=== PATIENT | female | born 1950 | race Caucasian/White ===

== ENCOUNTER → 2018-10-05 | Outpatient (CLI) | payer MEDICARE, BC ==
[~2018-10-05] MED LIST: ANTIVERT 25MG25 MG PO; LIPITOR 40MG TA40 MG PO; NORCO 325 MG-51 TAB PO; SYNTHROID0.05 MG/TA PO
== END ==
LOC: COL.RAD 13:30
DX: K11.20 Sialoadenitis, unspecified (principal)
CPT/HCPCS: Q9967

== ENCOUNTER 2020-01-16 09:01 | Inpatient (IN) | payer MEDICARE, BC ==
[~2020-01-16] VITALS: Ht 167.6 cm; Wt 93.0 kg
[2020-02-02 10:19] LABS: HEMATOCRIT 38.2 % (37.0-47.0); HEMOGLOBIN 12.7 g/dl (12.5-16.0); MEAN CELL VOLUME 91 fl (80.0-100.0); MEAN CORPUSCULAR HEMOGLOBIN 30 pg (27.0-31.0); MEAN CORPUSCULAR HGB CONC 33 g/dl (33.0-37.0); MEAN PLATELET VOLUME 10.1 fl (7.4-10.4); PLATELET COUNT 163 K/mm3 (130-400); REDCELL DISTRIBUTION WIDTH-CV 13.1 % (11.5-14.5)
[2020-02-02 10:25] LABS: ALBUMIN 4.8 gm/dL (3.5-5.0); BILIRUBIN,TOTAL 0.5 mg/dL (0.0-1.0); CALCIUM 10.2 mg/dL (8.4-10.2); CREATININE, serum 1.07 (0.52-1.25); TOTAL PROTEIN 7.9 gm/dL (6.4-8.2)
[2020-02-03] VITALS (11 sets, daily range): BP systolic 101–140; BP diastolic 50–64; PULSE 69–87; TEMP 97.4–98.3
[2020-02-03] MEDS ORDERED: GLUCOPHAGE1000 MG PO (06:37)
[2020-02-03] MEDS ORDERED: TIROSINT137 MC1 PO (06:41)
[2020-02-03] MEDS ORDERED: TIROSINT PO (06:42)
[2020-02-03] MEDS ORDERED: COZAAR100 MG PO (06:43)
[2020-02-03] MEDS ORDERED: NORVASC 10MG10 MG PO (06:43)
[2020-02-03] MEDS ORDERED: PROTONIX 40MG T40 MG PO (06:43)
[2020-02-03] MEDS ORDERED: FISH OIL 1000MG1 CAP PO (06:46)
[2020-02-03] MEDS ORDERED: ZYLOPRIM 100MG100 MG PO (06:46)
[2020-02-03] MEDS ORDERED: ONE-A-DAY ESSE1 EACH PO (06:46)
[2020-02-03] MEDS ORDERED: IRON TABLETS325 MG PO (06:47)
[2020-02-03] MEDS ORDERED: ATARAX 25MG25 MG/TAB PO (06:54)
--- NOTE | 2020-02-03 13:36 | NUR ---
PT TO ROOM 322 PER BED WITH REPORT FROM [facility] PACU @ [id number]. PT IS A/O X3. LUNGS CLEAR WITH BASES DIMINSHED BILATERALLY. PT IS ON O2 @6 L POM. RT NOTIFIED FOR A CONTINUOUS PULSE OXCIMETRY. IV TO PUMP, SCDS PLACED BILATERALLY. VSS, ASSESSMENTS COMPLETE.
--- NOTE | 2020-02-03 14:05 | NUR ---
RT IN TO SET UP PULSE OXCIMETRY. VSS AT THIS TIME. PT SATS IN LOW 90'S ON 6 L P/OM,
--- NOTE | 2020-02-03 21:00 | NUR ---
PATIENT RESTING IN BED. PATEINT HAS NO NAUSEA AND MINIMAL PAIN. PATIENT HAVING YELLOW URINE OUTPUT IN TATE. PATIENT WEARING SIMPLE FACE MASK FOR OXYGEN.
--- NOTE | 2020-02-03 22:30 | NUR ---
PATIENT COMPLAINING OF PAIN AND REQUEST PAIN MEDICATION. 5 MG ROXYCODONE GIVEN.
[2020-02-04 00:20] VITALS: BP 118/48; PULSE 69; TEMP 98.1
[2020-02-04 05:31] VITALS: BP 110/83; PULSE 71; TEMP 97.8
--- NOTE | 2020-02-04 05:38 | NUR ---
Patient resting in bed. Patient slept well throughout the night. Patient still on 6 L of oxygen via facemask at 96%. Patient reports minimal pain.
[2020-02-04 07:03] LABS: HEMOGLOBIN 11.2 g/dl (12.5-16.0)
[2020-02-04 07:13] LABS: CALCIUM 9.3 mg/dL (8.4-10.2); CREATININE, serum 1.39 (0.52-1.25); POTASSIUM 4.7 mmol/L (3.4-5.0)
[2020-02-04 07:14] LABS: HEMATOCRIT 33.4 % (37.0-47.0)
[2020-02-04 07:22] VITALS: BP 157/62; PULSE 79; TEMP 98.9
--- NOTE | 2020-02-04 08:49 | NUR ---
PT RESTING IN BED DR DESIR IN TO SEE PT THIS AM. SEE NEW ORDERS.
--- NOTE | 2020-02-04 10:19 | NUR ---
DISCONTINUED TATE AND MEGAN DRAIN. PT TOLERATED WELL. DRESSED MEGAN SITE WITH GAUZE AND TEGADERM.
[2020-02-04 12:00] VITALS: BP 150/65; PULSE 99; TEMP 98.4
--- NOTE | 2020-02-04 12:49 | NUR ---
[facility] [employer] offered prayer and support with patient.
--- NOTE | 2020-02-04 13:31 | NUR ---
REVIEWED DISCHARGE ORDERS, QUESTIONS ANSWERED.PT WAITING FOR RIDE TO PICK HER UP.
--- NOTE | 2020-02-04 14:55 | NUR ---
PT REFUSING TO WAIT FOR RX FROM DR. DESIR. PT TAKEN OUT TO POV PER WHEEL CHAIR BY STAFF.
== END 2020-02-04 14:30 | disposition home or self-care (01) | DRG 658 ==
LOC: INPTSU 02-03 05:22 → SURG 02-03 07:30
PROVIDERS: ADMIT Urology
PROC: 8E0W4CZ Robotic Assisted Procedure of Trunk Region, Percutaneous Endoscopic Approach (ICD-10-PCS; 2020-02-03)
PROC: 0TB14ZZ Excision of Left Kidney, Percutaneous Endoscopic Approach (ICD-10-PCS; principal; 2020-02-03 07:30)
DX: C64.2 Malignant neoplasm of left kidney, except renal pelvis (principal); E11.9 Type 2 diabetes mellitus without complications; M10.9 Gout, unspecified; I10 Essential (primary) hypertension; E78.00 Pure hypercholesterolemia, unspecified; M51.36 Other intervertebral disc degeneration, lumbar region; E66.9 Obesity, unspecified; Z96.659 Presence of unspecified artificial knee joint; Z68.33 Body mass index [BMI] 33.0-33.9, adult
CPT/HCPCS: A4314; J0690; J1100; J1170; J1815; J1885; J2250; J2405; J2704; J2795; J3010; J7030; J7120

== ENCOUNTER → 2020-08-10 | Outpatient (CLI) | payer MEDICARE, BC ==
[~2020-08-10] MED LIST changes: +ATARAX 25MG25 MG/TAB PO; +COZAAR100 MG PO; +FISH OIL 1000MG1 CAP PO; +GLUCOPHAGE1000 MG PO; +IRON TABLETS325 MG PO; +NORVASC 10MG10 MG PO; +ONE-A-DAY ESSE1 EACH PO; +PROTONIX 40MG T40 MG PO; +TIROSINT PO; +TIROSINT137 MC1 PO; +ZYLOPRIM 100MG100 MG PO
== END ==
LOC: COL.RAD 12:17
DX: C64.2 Malignant neoplasm of left kidney, except renal pelvis (principal); Z98.890 Other specified postprocedural states